=== PATIENT | male | born 1935 | race Hispanic/Latino ===

== ENCOUNTER 2017-10-15 00:04 | Emergency (ER) | payer MEDICARE ==
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
[2017-10-15] MEDS ORDERED: TRIPLE ANTIBIOTIC TP ONE ×2 (03:40→03:47)
[2017-10-15] MEDS ORDERED: TRIPLE ANTIBIOTIC TP SCH (03:40)
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
[2017-10-15] MEDS ORDERED: TYLENOL PO ONE (06:03)
[2017-10-15 06:17] VITALS: BP 144/92
== END 2017-10-15 07:10 | disposition other institution (70) ==
LOC: ED 00:04
DX: S09.90XA Unspecified injury of head, initial encounter (principal); S01.111A Laceration without foreign body of right eyelid and periocular area, initial encounter; W22.8XXA Striking against or struck by other objects, initial encounter; Y93.89 Activity, other specified; Y99.8 Other external cause status; Y92.89 Other specified places as the place of occurrence of the external cause
CPT/HCPCS: 70450; 72125; A6250